=== PATIENT | male | born 1950 | race Caucasian/White ===

== ENCOUNTER 2022-02-07 13:23 | Emergency (ER) | payer OTHER ==
[2022-02-07 14:28] VITALS: BMI 28.3
[2022-02-07] MEDS ORDERED: ACETAMINOPHEN 650 MG/20.3 ML ORAL SOLUTION (CUPS) PO ONE (16:05)
[2022-02-07] MEDS ORDERED: ACETAMINOPHEN 325 MG TABLET (FP) ONE (16:31)
[2022-02-07 18:25] VITALS: BP 121/56; PULSE 90; RESP 19; TEMP 98
== END 2022-02-07 19:22 | disposition home or self-care (01) ==
LOC: JER 13:23
DX: U07.1 COVID-19 (principal)
CPT/HCPCS: 99283-25